=== PATIENT | male | born 1980 | race Caucasian/White ===

== ENCOUNTER 2021-10-20 09:53 | Emergency (ER) | payer OTHER ==
[2021-10-20] MEDS ORDERED: OMEPRAZOLE40 MG PO (10:00)
[2021-10-20 10:33] LABS: BASO # 0.01 K/mm3 (0.02-0.10); EOS # 0.09 K/mm3 (0.04-0.40); EOS % 1.6 % (0.0-4.0); HEMATOCRIT 45.5 % (42.0-52.0); HEMOGLOBIN 15.5 g/dL (13.5-18.0); LYMPH# 1.45 K/mm3 (1.50-4.00); MEAN CELL VOLUME 86 fl (78-100); MEAN CORPUSCULAR HEMOGLOBIN 29 pg (27-31); MEAN CORPUSCULAR HGB CONC 34 g/dL (33-37); MEAN PLATELET VOLUME 8.7 fl (7.4-10.4); MONO # 0.51 K/mm3 (0.20-0.80); PLATELET COUNT 233 K/mm3 (130-400); RED BLOOD COUNT 5.29 M/mm3 (4.20-5.60); RED CELL DISTRIBUTION WIDTH 12.4 % (11.5-14.5); WHITE BLOOD COUNT 5.6 K/mm3 (4.8-10.8)
[2021-10-20 10:43] LABS: ALBUMIN 4.2 g/dL (3.5-5.0); POTASSIUM 3.7 mmol/L (3.5-5.1)
[2021-10-20 10:44] LABS: CALCIUM 9.7 mg/dL (8.3-10.5)
[2021-10-20 10:46] LABS: TOTAL PROTEIN 7.5 g/dL (6.4-8.3)
[2021-10-20 10:47] LABS: TOTAL BILIRUBIN 0.7 mg/dL (0.2-1.2)
[2021-10-20 10:49] LABS: URINE APPEARANCE CLEAR; URINE COLOR YELLOW; URINE KETONE 1+ (NEGATIVE); URINE PROTEIN(semi-quant) 2+ (NEGATIVE)
[2021-10-20 10:50] LABS: URINE BILIRUBIN 0 (NEGATIVE); URINE BLOOD 50 ery/uL (NEGATIVE); URINE LEUKOCYTE ESTERASE NEGATIVE (NEGATIVE); URINE MUCUS PRESENT (NOT PRESENT); URINE NITRATE NEGATIVE (NEGATIVE); URINE UROBILINOGEN 4 mg/dL (NORMAL); URINE WBC 0-1 /hpf (0-3)
[2021-10-20 13:23] VITALS: BP 130/90
== END 2021-10-20 13:23 | disposition home or self-care (01) ==
LOC: ED 09:53
PROVIDERS: Family Medicine
DX: E11.65 Type 2 diabetes mellitus with hyperglycemia (principal); E86.9 Volume depletion, unspecified; R19.7 Diarrhea, unspecified; E66.9 Obesity, unspecified; Z28.310 Unvaccinated for COVID-19
CPT/HCPCS: J7030